=== PATIENT | female | born 1975 | race Caucasian/White ===

== ENCOUNTER 2019-04-01 14:29 | Day surgery (SDC) | payer BC ==
[~2019-04-01 14:29] MED LIST: CALCIUM 600 +1 EA11 PO; CEPH500 PO; FERSU300 PO; POTA10T PO
== END 2019-04-01 15:57 | disposition home or self-care (01) ==
LOC: ATC 14:29
DX: D50.9 Iron deficiency anemia, unspecified (principal); L03.116 Cellulitis of left lower limb; E66.01 Morbid (severe) obesity due to excess calories; Z98.84 Bariatric surgery status; Z79.899 Other long term (current) drug therapy
CPT/HCPCS: 96365; J2916

== ENCOUNTER 2019-04-02 08:37 | Day surgery (SDC) | payer BC | END 2019-04-02 16:35 | disposition home or self-care (01) | LOC: ATC 08:37 | DX: D50.9 Iron deficiency anemia, unspecified (principal); E66.01 Morbid (severe) obesity due to excess calories; Z98.84 Bariatric surgery status; Z79.899 Other long term (current) drug therapy | CPT/HCPCS: 96365; J2916 ==

== ENCOUNTER 2019-04-03 00:23 | Day surgery (SDC) | payer BC | END 2019-04-03 16:47 | disposition home or self-care (01) | LOC: ATC 00:23 | DX: D50.9 Iron deficiency anemia, unspecified (principal); E66.01 Morbid (severe) obesity due to excess calories | CPT/HCPCS: 96365; J2916 ==

== ENCOUNTER 2019-04-04 00:16 | Day surgery (SDC) | payer BC | END 2019-04-04 16:15 | disposition home or self-care (01) | LOC: ATC 00:16 | DX: D50.9 Iron deficiency anemia, unspecified (principal); E66.01 Morbid (severe) obesity due to excess calories; Z98.84 Bariatric surgery status; Z79.899 Other long term (current) drug therapy | CPT/HCPCS: 96365; J2916 ==

== ENCOUNTER → 2020-11-03 | Outpatient (CLI) | payer BC ==
[2020-11-03 13:38] LABS: BASOPHILS ABSOLUTE AUTO 0.06 K/mm3 (0.00-0.23); BASOPHILS PERCENT AUTO 1 % (0-2); EOSINOPHILS ABSOLUTE AUTO 0.72 K/mm3 (0.00-0.68); EOSINOPHILS PERCENT AUTO 8 % (0-6); Hematocrit 33.8 % (33.0-51.0); IMMATURE GRAN ABSOLUTE AUTO 0.04 K/mm3 (0.00-0.10); IMMATURE GRAN PERCENT AUTO 0 % (0-1); LYMPHOCYTES ABSOLUTE AUTO 1.27 K/mm3 (0.84-5.20); LYMPHOCYTES PERCENT AUTO 13 % (21-46); MONOCYTES PERCENT AUTO 12 % (4-13); Mean Corpuscular HGB 21.5 pg (26.0-34.0); Mean Corpuscular HGB Conc 29.6 g/dL (31.5-36.5); Mean Corpuscular Volume 73 fL (80-100); NEUTROPHILS ABSOLUTE AUTO 6.38 K/mm3 (1.96-9.15); NEUTROPHILS PERCENT AUTO 67 % (41-73); Platelet Count 280 K/mm3 (150-400); RDW Coefficient Variation 18.3 % (11.7-14.2); RDW Standard Deviation 47.2 fL (35.1-46.3); Red Blood Cell Count 4.65 M/mm3 (3.80-5.20); White Blood Cell Count 9.57 K/mm3 (4.00-11.30)
[2020-11-03 13:56] LABS: Albumin, Blood 3.8 g/dL (3.4-5.0); Albumin/Globulin Ratio 0.9 (0.8-1.8); Bilirubin, Total 0.3 mg/dL (0.1-1.0); Calcium, Blood 8.9 mg/dL (8.5-10.1); Creatinine, Blood 1.25 mg/dL (0.40-1.00); Globulin, Blood 4.4 g/dL (2.2-4.0); Magnesium, Blood 2.4 mg/dL (1.6-2.4); Thyroid Stimulating Hormone 1.793 uIU/mL (0.360-4.800); Total Protein, Blood 8.2 g/dL (6.4-8.2)
== END | disposition home or self-care (01) ==
LOC: LAB SHORT 13:31 → LAB EV 13:31 → LAB 13:31
PROVIDERS: Physician Assistant
DX: R60.9 Edema, unspecified (principal); R53.83 Other fatigue; N39.0 Urinary tract infection, site not specified
CPT/HCPCS: 80053; 83735; 84443; 85025; 85379; 87086

== ENCOUNTER 2021-02-14 06:30 | Emergency (ER) | payer BC ==
[~2021-02-14] VITALS: Ht 167.6 cm; Wt 195.0 kg
[2021-02-14 07:12] LABS: BASOPHILS ABSOLUTE AUTO 0.04 K/mm3 (0.00-0.23); BASOPHILS PERCENT AUTO 0 % (0-2); EOSINOPHILS ABSOLUTE AUTO 0.59 K/mm3 (0.00-0.68); EOSINOPHILS PERCENT AUTO 5 % (0-6); Hematocrit 35.2 % (33.0-51.0); Hemoglobin 9.6 g/dL (11.5-16.0); IMMATURE GRAN PERCENT AUTO 1 % (0-1); LYMPHOCYTES ABSOLUTE AUTO 0.98 K/mm3 (0.84-5.20); LYMPHOCYTES PERCENT AUTO 7 % (21-46); MONOCYTES ABSOLUTE AUTO 0.64 K/mm3 (0.16-1.47); MONOCYTES PERCENT AUTO 5 % (4-13); Mean Corpuscular HGB Conc 27.3 g/dL (31.5-36.5); Mean Corpuscular Volume 73 fL (80-100); NEUTROPHILS ABSOLUTE AUTO 10.87 K/mm3 (1.96-9.15); NEUTROPHILS PERCENT AUTO 82 % (41-73); Platelet Count 328 K/mm3 (150-400); RDW Coefficient Variation 19.3 % (11.7-14.2); RDW Standard Deviation 49.7 fL (35.1-46.3); White Blood Cell Count 13.22 K/mm3 (4.00-11.30)
[2021-02-14 07:28] LABS: Alanine Aminotransfer (ALT/SGP 15 U/L (12-78); Albumin, Blood 3.6 g/dL (3.4-5.0); Albumin/Globulin Ratio 0.8 (0.8-1.8); Alk Phos 96 U/L (50-136); Anion Gap 8 mmol/L (6-16); Aspartate Aminotrans (AST/SGOT 10 U/L (12-37); Bilirubin, Total 0.2 mg/dL (0.1-1.0); Blood Urea Nitrogen 14 mg/dL (8-24); CO2, Blood 22 mmol/L (21-32); Calcium, Blood 8.8 mg/dL (8.5-10.1); Chloride, Blood 112 mmol/L (98-108); Creatinine, Blood 0.93 mg/dL (0.40-1.00); Globulin, Blood 4.3 g/dL (2.2-4.0); Glomerular Filtration Rate >60 (60-); Glucose, Blood 112 mg/dL (70-99); Potassium, Blood 3.3 mmol/L (3.5-5.5); Sodium, Blood 142 mmol/L (136-145); Total Protein, Blood 7.9 g/dL (6.4-8.2); Troponin I 0.016 ng/mL (0.000-0.040)
== END 2021-02-14 09:12 | disposition home or self-care (01) ==
LOC: ER 06:30
PROVIDERS: Emergency Medicine
DX: R06.02 Shortness of breath (principal); D53.9 Nutritional anemia, unspecified; Z86.16 Personal history of COVID-19
CPT/HCPCS: 36415; 71045; 80053; 84484; 85025; 85379; 93005; 93010; 99284-25; A9270

== ENCOUNTER 2022-03-18 20:14 | Emergency (ER) | payer BC ==
[~2022-03-18] VITALS: Ht 167.6 cm; Wt 181.4 kg
[2022-03-18 21:53] LABS: Influenza A, PCR NEGATIVE (NEGATIVE); Influenza B, PCR NEGATIVE (NEGATIVE); Resp Syncytial Virus, PCR NEGATIVE (NEGATIVE); SARS-Cov-2 (COVID-19) PCR, MMC NEGATIVE (NEGATIVE)
== END 2022-03-19 02:17 | disposition left against medical advice (07) ==
LOC: ER 20:14
PROVIDERS: Physician Assistant
DX: R50.9 Fever, unspecified (principal); Z53.21 Procedure and treatment not carried out due to patient leaving prior to being seen by health care provider; Z20.822 Contact with and (suspected) exposure to COVID-19
CPT/HCPCS: 0241U

== ENCOUNTER 2024-06-26 16:16 | Emergency (ER) | payer BC ==
[~2024-06-26] VITALS: Ht 167.6 cm; Wt 134.3 kg
[~2024-06-26 16:16] MED LIST changes: +PHENA200 PO
[2024-06-26 16:42] VITALS: BP 148/91
[2024-06-26 17:10] LABS: BASOPHILS ABSOLUTE AUTO 0.04 K/mm3 (0.00-0.23); BASOPHILS PERCENT AUTO 1 % (0-2); EOSINOPHILS ABSOLUTE AUTO 0.31 K/mm3 (0.00-0.68); EOSINOPHILS PERCENT AUTO 5 % (0-6); Hematocrit 35.3 % (33.0-51.0); Hemoglobin 10.8 g/dL (11.5-16.0); IMMATURE GRAN ABSOLUTE AUTO 0.01 K/mm3 (0.00-0.10); IMMATURE GRAN PERCENT AUTO 0 % (0-1); LYMPHOCYTES ABSOLUTE AUTO 1.08 K/mm3 (0.84-5.20); LYMPHOCYTES PERCENT AUTO 17 % (21-46); MONOCYTES PERCENT AUTO 8 % (4-13); Mean Corpuscular HGB Conc 30.6 g/dL (31.5-36.5); Mean Corpuscular Volume 88 fL (80-100); Mean Platelet Volume 11.1 fL (9.1-12.4); NEUTROPHILS ABSOLUTE AUTO 4.36 K/mm3 (1.96-9.15); NEUTROPHILS PERCENT AUTO 69 % (41-73); Platelet Count 185 K/mm3 (150-400); RDW Coefficient Variation 14.9 % (11.7-14.2); RDW Standard Deviation 49.1 fL (35.1-46.3)
[2024-06-26 17:53] LABS: Albumin, Blood 3.7 g/dL (3.4-5.0); Albumin/Globulin Ratio 0.9 (0.8-1.8); Bilirubin, Total 0.4 mg/dL (0.1-1.0); Bun/Creatinine Ratio 13.3 (12.0-20.0); Calcium, Blood 9.3 mg/dL (8.5-10.1); Creatinine, Blood 1.2 mg/dL (0.40-1.00); Globulin, Blood 4.1 g/dL (2.2-4.0); Potassium, Blood 3.2 mmol/L (3.5-5.5); Thyroid Stimulating Hormone 1.49 uIU/mL (0.360-4.800); Total Protein, Blood 7.8 g/dL (6.4-8.2)
[2024-06-26] MEDS ORDERED: Adipex-P37.5 M1 PO (19:17)
[2024-06-26] MEDS ORDERED: Budeprion Xl300 MG PO (19:17)
== END 2024-06-26 20:05 | disposition home or self-care (01) ==
LOC: ER 16:16
PROVIDERS: Emergency Medicine
DX: F43.9 Reaction to severe stress, unspecified (principal); Z88.8 Allergy status to other drugs, medicaments and biological substances
CPT/HCPCS: 80053; 82607; 82746; 84443; 85025; 99283

== ENCOUNTER → 2024-11-28 | Outpatient (CLI) | payer BC ==
[~2024-11-28] MED LIST changes: +Adipex-P37.5 M1 PO; +Budeprion Xl300 MG PO
[2024-12-02 09:35] LABS: ALPHA 1 GLOBULIN 0.41 g/dL (0.19-0.46); ALPHA 2 GLOBULIN 0.89 g/dL (0.48-1.05); BETA GLOBULIN 0.81 g/dL (0.48-1.10); GAMMA 1.09 g/dL (0.62-1.51); IMMUNOFIXATION IFE Done; IMMUNOGLOBULIN A 223 mg/dL (68-408); IMMUNOGLOBULIN G 933 mg/dL (768-1632); IMMUNOGLOBULIN M 170 mg/dL (35-263); KAPPA QNT FREE LIGHT CHAINS 34.71 mg/L (3.30-19.40); KAPPA/LAMBDA FLC RATIO 1.16 (0.26-1.65); LAMBDA QNT FREE LIGHT CHAINS 30.04 mg/L (5.71-26.30); TOTAL PROTEIN, SERUM 6.3 g/dL (6.3-8.2)
== END | disposition home or self-care (01) ==
LOC: LAB SHORT 18:34 → LAB 18:34
PROVIDERS: Internal Medicine Hematology & Oncology
DX: D47.2 Monoclonal gammopathy (principal)
CPT/HCPCS: 82784; 83521; 84155; 84165; 86334

== ENCOUNTER 2025-03-04 22:33 | Emergency (ER) | payer BC ==
[~2025-03-04] VITALS: Ht 167.6 cm; Wt 106.6 kg
[2025-03-04 22:56] LABS: BASOPHILS ABSOLUTE AUTO 0.05 K/mm3 (0.00-0.23); BASOPHILS PERCENT AUTO 1 % (0-2); EOSINOPHILS ABSOLUTE AUTO 0.47 K/mm3 (0.00-0.68); EOSINOPHILS PERCENT AUTO 7 % (0-6); Hematocrit 38.6 % (33.0-51.0); Hemoglobin 12.0 g/dL (11.5-16.0); IMMATURE GRAN ABSOLUTE AUTO 0.02 K/mm3 (0.00-0.10); IMMATURE GRAN PERCENT AUTO 0 % (0-1); LYMPHOCYTES ABSOLUTE AUTO 1.53 K/mm3 (0.84-5.20); LYMPHOCYTES PERCENT AUTO 21 % (21-46); MONOCYTES ABSOLUTE AUTO 0.58 K/mm3 (0.16-1.47); MONOCYTES PERCENT AUTO 8 % (4-13); Mean Corpuscular HGB Conc 31.1 g/dL (31.5-36.5); Mean Corpuscular Volume 88 fL (80-100); NEUTROPHILS ABSOLUTE AUTO 4.58 K/mm3 (1.96-9.15); NEUTROPHILS PERCENT AUTO 63 % (41-73); NRBC ABSOLUTE 0.00 K/mm3 (0.00-0.02); NRBC Auto 0.0 /100 WBC (0.0-0.2); Platelet Count 205 K/mm3 (150-400); RDW Coefficient Variation 15.3 % (11.7-14.2); RDW Standard Deviation 49.3 fL (35.1-46.3)
[2025-03-04] MEDS ORDERED: Ketorolac Tromethamine 15mg Vial IV ONE (23:10)
[2025-03-04 23:14] LABS: Alanine Aminotransfer (ALT/SGP 23.0 U/L (12-78); Albumin, Blood 3.3 g/dL (3.4-5.0); Albumin/Globulin Ratio 0.8 (0.8-1.8); Anion Gap 9.0 mmol/L (3-11); Aspartate Aminotrans (AST/SGOT 29.0 U/L (12-37); Bilirubin, Total 0.2 mg/dL (0.1-1.0); Blood Urea Nitrogen 20.0 mg/dL (8-24); CO2, Blood 22.0 mmol/L (21-32); Calcium, Blood 8.5 mg/dL (8.5-10.1); Chloride, Blood 113.0 mmol/L (98-108); Creatinine, Blood 1.15 mg/dL (0.40-1.00); Globulin, Blood 3.9 g/dL (2.2-4.0); Glucose, Blood 126.0 mg/dL (70-99); Potassium, Blood 3.7 mmol/L (3.5-5.5); Sodium, Blood 140.0 mmol/L (136-145); Total Protein, Blood 7.2 g/dL (6.4-8.2)
[2025-03-05 00:58] LABS: Source, Urine Clean Catch
[2025-03-05] MEDS ORDERED: ACET500 PO (01:07)
[2025-03-05] MEDS ORDERED: IBUP600 PO (01:07)
[2025-03-05] MEDS ORDERED: FLOMAX0.4 MG PO (01:08)
[2025-03-05] MEDS ORDERED: ONDA4 PO (01:08)
[2025-03-05 01:09] LABS: Bilirubin, Urine Neg (Neg); Color, Urine Amber (P-Yellow); Glucose Qualitative, Urine Neg (Neg); Ketones, Urine Neg (Neg); Leukocyte Esterase, Urine 3+ (Neg); Protein, Urine 3+ (Neg); Specific Gravity, Urine 1.025 (1.003-1.022); Urobilinogen, Urine 1+ (Normal)
[2025-03-05 01:21] LABS: Red Blood Cells, Urine TNTC /hpf (0-2); White Blood Cells, Urine 25-50 /hpf (0-5)
[2025-03-05] MEDS ORDERED: Ciprofloxacin 400MG/D5 200ML 200 ML IV ONE (03:35)
[2025-03-05] MEDS ORDERED: CIPR500 PO (03:40)
[2025-03-05] MEDS ORDERED: RX Prepack 6 Tabs Oxycodone 5mg UD ONE (03:45)
[2025-03-05 04:59] VITALS: BP 173/90
== END 2025-03-05 05:00 | disposition home or self-care (01) ==
LOC: ER 22:33
PROVIDERS: Student in an Organized Health Care Education/Training Program
DX: N13.6 Pyonephrosis (principal); N30.01 Acute cystitis with hematuria; Z87.442 Personal history of urinary calculi; Z96.0 Presence of urogenital implants; Z88.8 Allergy status to other drugs, medicaments and biological substances; Z79.899 Other long term (current) drug therapy
CPT/HCPCS: 74177; 80053; 81001; 85025; 86850; 86900; 86901; 87086; A9270; J0744; J1885; Q9967

== ENCOUNTER 2025-04-27 06:25 | Day surgery (SDC) | payer BC ==
[~2025-04-27] VITALS: Ht 167.6 cm; Wt 99.7 kg
[2025-04-27] VITALS (10 sets, daily range): BP systolic 142–156; BP diastolic 77–98
[~2025-04-27 06:25] MED LIST changes: +ACET500 PO; +AMLO5 PO; +BUPR100ER PO; -Budeprion Xl300 MG PO; +CIPR500 PO; +Ciprofloxacin 400MG/D5 200ML 200 ML IV ONE; +FLOMAX0.4 MG PO; +IBUP600 PO; +ONDA4 PO
[2025-04-27] MEDS ORDERED: SEMAGLUTID0.5 MG/0.1 SC (06:44)
[2025-04-27] MEDS ORDERED: Ondansetron HCl 2 MG / ML 2ML Vial ONE (07:28)
[2025-04-27] MEDS ORDERED: Dexamethasone Sod Phos 10 MG/ML 1ML VIAL ONE (07:28)
[2025-04-27] MEDS ORDERED: Midazolam HCl 1MG / ML 2ML Vial ONE (07:28)
[2025-04-27] MEDS ORDERED: FentaNYL Citrate 50 MCG/ML 2 ML Injection ONE ×2 (07:28→09:22)
[2025-04-27] MEDS ORDERED: Rocuronium Bromide 10 MG/ML 5ML Injection IV ONE (07:28)
[2025-04-27] MEDS ORDERED: Sugammadex Sodium 200 MG/2ML SDV (100 MG/ML) ONE (07:28)
[2025-04-27] MEDS ORDERED: Glycopyrrolate 0.2 MG/ML 5ML VIAL ONE (08:32)
[2025-04-27] MEDS ORDERED: FentaNYL Citrate 50 MCG/ML 2 ML Injection IV PRN ×2 (08:35)
[2025-04-27] MEDS ORDERED: Albuterol 2.5 MG/3 ML VIAL INH PRN (08:35)
[2025-04-27] MEDS ORDERED: ePHEDrine Sulfate 50 MG/ML 1ML Injection IV PRN (08:35)
--- NOTE | 2025-04-27 08:39 | NUR ---
History, Chart, Medications and Allergies reviewed before start of procedure. Lungs clear T/O to Auscultation. Patient confirms NPO status and agrees with scheduled surgery. Pre-Op teaching done. Pt verbalizes understanding.
[2025-04-27] MEDS ORDERED: Ondansetron HCl 2 MG / ML 2ML Vial IV PRN (08:40)
[2025-04-27] MEDS ORDERED: Metoclopramide HCl 5MG / ML 2ML Vial IV PRN (08:40)
[2025-04-27] MEDS ORDERED: HYDROmorphone HCl/Pf 1MG SYR IV PRN ×2 (08:40)
[2025-04-27] MEDS ORDERED: HydrALAZINE HCl 20 MG / ML 1ML Vial IV PRN (08:40)
[2025-04-27] MEDS ORDERED: HYDROcodone 5-APAP 325 TAB PO PRN (09:20)
--- NOTE | 2025-04-27 10:49 | NUR ---
DISCHARGE NOTE PT A&OX4, BREATHING RA, PAIN TOLERABLE, NO NAUSEA, TOLERATING PO INTAKE. SO AT BEDSIDE. Patient up to Ambulate independently. Gait steady. Discharge instructions reviewed with patient. Patient verbalizes understanding. Copy given to patient to take home. Discharged via wheelchair to private car for ride home.
== END 2025-04-27 10:45 | disposition home or self-care (01) ==
LOC: ORSCMMR 06:25 → ORD 08:00 → ORSCMMR 10:45
PROVIDERS: Urology
PROC: 0TC68ZZ Extirpation of Matter from Right Ureter, Via Natural or Artificial Opening Endoscopic (ICD-10-PCS; principal; 2025-04-27 08:00)
PROC: 0T768DZ Dilation of Right Ureter with Intraluminal Device, Via Natural or Artificial Opening Endoscopic (ICD-10-PCS; principal; 2025-04-27 08:00)
DX: N13.2 Hydronephrosis with renal and ureteral calculous obstruction (principal); Z96.0 Presence of urogenital implants; G47.33 Obstructive sleep apnea (adult) (pediatric); I10 Essential (primary) hypertension; E66.01 Morbid (severe) obesity due to excess calories; Z68.35 Body mass index [BMI] 35.0-35.9, adult; Z79.899 Other long term (current) drug therapy; Z79.85 Long-term (current) use of injectable non-insulin antidiabetic drugs
CPT/HCPCS: 82365; 88300; A9270; C1758; C1769; C2617; J0744; J1100; J2250; J2405; J2704; J3010; J7120